=== PATIENT | female | born 1965 | race Caucasian/White ===

== ENCOUNTER 2021-12-07 13:49 | Outpatient (CLI) | payer OTHER ==
[2021-12-07 14:41] VITALS: BP 119/77
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
== END 2021-12-07 13:50 | disposition home or self-care (01) ==
LOC: SC 13:49
PROVIDERS: ATTEND Nurse Practitioner Family
DX: R06.83 Snoring (principal); G47.8 Other sleep disorders; R06.81 Apnea, not elsewhere classified; G47.00 Insomnia, unspecified; R51.9 Headache, unspecified; E66.9 Obesity, unspecified; Z68.31 Body mass index [BMI] 31.0-31.9, adult
CPT/HCPCS: 99203; 99212

== ENCOUNTER 2021-12-29 19:26 | Outpatient (CLI) | payer OTHER | END 2021-12-29 19:27 | disposition home or self-care (01) | LOC: SC 19:26 | PROVIDERS: ATTEND Nurse Practitioner Family | DX: G47.33 Obstructive sleep apnea (adult) (pediatric) (principal) | CPT/HCPCS: 95810 ==

== ENCOUNTER 2022-01-25 16:01 | Outpatient (CLI) | payer OTHER ==
--- NOTE | 2022-01-25 16:42 | SLEEP CARE CONSULTATION ---
Information from patient questionnaire entered by Andry Brewer. I have reviewed and concur with the information entered by Andry Brewer. This document represents the service I personally performed and the decisions made by , Rajni Busby ARNP. History of Present Illness Service Date and Time: 01/25/2022 1601 Accompanied by: Spouse Initial [place] Sleepiness Scale score: 4 (12/07/2021) Current [place] Sleepiness Scale score: 5 (01/25/22) Additional HPI information: YVON SHEN returns for follow up and results of the recently performed polysomnography. I explained the pathophysiology behind obstructive sleep apnea. We then spent quite a bit of time discussing different treatment options. For mild obstructive sleep apnea, surgery and oral appliance are alternatives to nasal CPAP therapy but in moderate or severe cases, nasal CPAP is the most effective and reliable treatment. Because apnea is primarily in supine position, then positional management therapy could be effective. Methods discussed such as positioning with pillows, a T-shirt with balls sewn into the back or commercially available positional devices/belts to prevent supine sleep. I reviewed the impact of weight changes on sleep apnea and strongly recommended losing weight. Patient was cautioned about risks of drowsy driving until sleepiness symptoms resolve. Sleep Study - Results Type of Sleep Study: Polysomnography (DONE 12/29/21) Prior sleep studies: No Polysomnography/Home Sleep Study results: IMPRESSION: The quality of the study is good. The patient had normal sleep efficiency. The sleep architecture was abnormal for sleep fragmentation and reduced amount of time spent in slow wave sleep (N3). Respiratory monitoring showed moderate obstructive sleep apnea-hypopnea (AHI = 15.6) associated with frequent arousals, oxyhemoglobin desaturation and mild hypoxia (flor oxygen saturation of 84%). The respiratory events occurred mainly during supine sleep (supine AHI = 40.8; non-supine = 5.30). Snore was moderate to loud in intensity. There was no significant periodic leg movement of sleep. Cardiac rhythm was normal sinus rhythm without significant arrhythmia. No abnormal behavior (parasomnia) observed during the night. Allergies and Home Medications Home medication list reviewed: Yes (no changes) Review of Systems Review of systems same as previous: Yes (no changes) Physical Exam Vital signs obtained and entered by: OSMAN PAULA Blood Pressure: 130/82 (right arm ) Cuff size: regular Heart Rate: 88 O2 Saturation: 99 Height: 5 ft 6 in Weight: 196 lb Body Mass Index: 31.6 BMI Classification: Obese Impression and Plan 1. Obstructive Sleep Apnea-Hypopnea Syndrome, moderate, with lowest oxygen saturation of 84%. Obviously this is the cause of the patients symptoms of unrefreshed sleep, and excessive daytime sleepiness. Positive pressure therapy could benefit attention deficit. Patient does not feel she could tolerate CPAP mask because of her claustrophobia. She could use a combination of positional therapy with an oral device to control her sleep apnea since her nonsupine AHI was 5.3. The patient will try an oral appliance with positional therapy to treat their apnea. A follow up will be made to see if appliance with positional therapy has reduced symptoms. If so, another polysomnography will be ordered with use of the oral appliance with positional therapy to check efficacy in reducing apnea. Until patient is able to use the oral appliance, positional therapy is advised to avoid supine sleep with pillow positioning or one of the commercial products because apnea is more severe supine. * Oral appliance with positional therapy. * Attempt to lose weight. * Avoid supine sleep. * The patient is again cautioned about driving until sleepiness completely resolves. * Return one month after oral appliance obtained. I will assess response to therapy and compliance at that time. Counseling Topics: Sleeping position, Weight loss health impact Visit Type: In Office Time Spent with Patient (minutes): 28 Provider Statement: I spent 100% of the Face to Face Visit with the patient with greater than 50% spent counseling the patient and coordination of care.
[2022-01-25 16:43] VITALS: BP 130/82
== END 2022-01-25 16:02 | disposition home or self-care (01) ==
LOC: SC 16:01
PROVIDERS: ATTEND Nurse Practitioner Family
DX: G47.33 Obstructive sleep apnea (adult) (pediatric) (principal); E66.9 Obesity, unspecified; Z68.31 Body mass index [BMI] 31.0-31.9, adult
CPT/HCPCS: 99212; 99213

== ENCOUNTER 2022-07-18 22:04 | Emergency (ER) | payer OTHER ==
[2022-07-18 22:13] VITALS: BP 133/78
--- NOTE | 2022-07-18 22:55 | ED Physician Documentation ---
PD HPI SKIN - Stated complaint Stated Complaint: LT HAND INJURY - Chief complaint Chief Complaint: Laceration - History obtained from History obtained from: Patient - Additional information Additional information: 56-year-old woman cut her hand with an X-Acto knife today. Patient is right- hand dominant. Tetanus up-to-date. Review of Systems Skin: reports: Laceration (s) PD PAST MEDICAL HISTORY - Allergies Allergies/Adverse Reactions: Allergies Allergy/AdvReac Type Severity Reaction Status Date / Time caffeine Allergy Anaphylaxis Verified 07/18/22 22:11 Penicillins Allergy Anaphylaxis Verified 07/18/22 22:11 PD ED PE NORMAL - Vitals Vital signs reviewed: Yes - General General: Alert and oriented X 3, No acute distress, Well developed/nourished - HEENT HEENT: Atraumatic, PERRL, EOMI - Derm Derm: Other (Superficial laceration across thenar eminence of left hand. Palmar side. 2+ radial pulse. Normal sensation and movement.) Results - Vitals Vitals: Vital Signs - 24 hr 07/18/22 22:11 Temperature 36.5 C Heart Rate 90 Respiratory 16 Rate Blood Pressure 133/78 H O2 Saturation 98 Oxygen O2 Source Room air Procedures - Laceration (location) Hand left Length in cm: 3 Wound type: Linear Wound preparation: Other (washed with soap and water) Skin layer closure: Dermabond Other: Patient tolerated well PD Medical Decision Making - ED course ED course: 56-year-old woman presented for laceration repair which was done with Dermabond without incident. Tetanus up-to-date. Return precautions given. Departure - Departure Disposition: 01 Home, Self Care Clinical Impression: Laceration of hand Condition: Good Instructions: ED Laceration Ext Skin Glue Comments: You were seen in the emergency department for a cut on your hand. Dermabond skin glue was applied. Please keep the dressing dry and clean for 24 hours. You can change it daily thereafter. Monitor for signs of infection. Return to the emergency department if you have other concerns.
== END 2022-07-18 22:56 | disposition home or self-care (01) ==
LOC: ED 22:04
DX: S61.412A Laceration without foreign body of left hand, initial encounter (principal); X58.XXXA Exposure to other specified factors, initial encounter
CPT/HCPCS: 12002; 99281